=== PATIENT | male | born 1945 | race Asian ===

== ENCOUNTER 2024-01-28 21:19 | Emergency (ER) | payer MEDICARE, OTHER ==
[~2024-01-28] VITALS: Ht 170.2 cm; Wt 73.5 kg
[2024-01-28 21:30] VITALS: BP_SYST 115; PULSE 97; RESP 21; TEMP 98; O2SAT 96
[2024-01-28 22:43] LABS: HEMATOCRIT 32.1 % (36-54); HEMOGLOBIN 11.2 g/dL (14.0-18.0); LYMPHOCYTES # (AUTO) 0.4 K/uL (1.0-5.5); MEAN CORPUSCULAR HEMOGLOBIN 32 pg (27-31); MEAN CORPUSCULAR HGB CONC 35 % (32-36); MEAN CORPUSCULAR VOLUME 90 fL (79.0-98.0); PLATELET COUNT (AUTO) 130 K/uL (130-430); RED BLOOD CELL COUNT(AUTO) 3.57 MIL/uL (4.2-6.2); RED CELL DISTRIBUTION WIDTH 14.3 % (9.0-15.0); WHITE BLOOD COUNT (AUTO) 5.9 K/uL (4.8-10.8)
[2024-01-28 22:50] LABS: BASOPHILS % (AUTO) 0.5 % (0.0-2.0); EOSINOPHILS % (AUTO) 1.3 % (0.0-4.0); LYMPHOCYTES % (AUTO) 9.6 % (20.5-51.5); MONOCYTES # (AUTO) 0.6 K/uL (0.0-1.0); NEUTROPHILS # (AUTO) 4.5 K/uL (1.8-7.7)
[2024-01-28 22:51] LABS: EOSINOPHILS # (AUTO) 0.1 K/uL (0.0-0.4); MONOCYTES % (AUTO) 10.9 % (1.7-9.3)
[2024-01-28 22:52] LABS: ANION GAP 6 (5-15); CALCIUM 7.8 mg/dL (8.4-11.0); CARBON DIOXIDE 28 mmol/L (23-29); CHLORIDE 99 mmol/L (98-107); CREATININE 1.18 mg/dL (0.55-1.30); GLUCOSE 122 mg/dL (74-106); NEUTROPHILS % (AUTO) 77.7 % (40.0-70.0); POTASSIUM 3.6 mmol/L (3.5-5.1); SODIUM SERUM 133 mmol/L (136-145); UREA NITROGEN, BLOOD 31 mg/dL (8-21)
[2024-01-28] MEDS ORDERED: ROPI2TAB29 PO (23:55)
[2024-01-29] MEDS: ACETAMINOPHEN 500 MG TABLET PO ONE (00:07)
[2024-01-29 00:15] VITALS: BP_SYST 115; PULSE 97; RESP 21; TEMP 98; O2SAT 96
== END 2024-01-29 00:15 | disposition home or self-care (01) ==
LOC: SED 21:19
DX: G25.81 Restless legs syndrome (principal); E78.5 Hyperlipidemia, unspecified; Z98.890 Other specified postprocedural states; Z85.46 Personal history of malignant neoplasm of prostate; Z79.899 Other long term (current) drug therapy
CPT/HCPCS: 36415; 80048; 85025; 93971; 99284

== ENCOUNTER 2024-02-02 04:53 | Emergency (ER) | payer MEDICARE, OTHER ==
[~2024-02-02] VITALS: Ht 170.2 cm; Wt 70.3 kg
[~2024-02-02 04:53] MED LIST: ROPI2TAB29 PO
[2024-02-02 05:05] VITALS: BP_SYST 154; PULSE 97; RESP 16; TEMP 99.5; O2SAT 96
[2024-02-02] MEDS: NACL 0.9% 1,000 ML IV ONE (05:27)
[2024-02-02 07:21] LABS: BASOPHILS % (AUTO) 0.5 % (0.0-2.0); HEMATOCRIT 37.2 % (36-54); HEMOGLOBIN 12.4 g/dL (14.0-18.0); LYMPHOCYTES # (AUTO) 0.7 K/uL (1.0-5.5); LYMPHOCYTES % (AUTO) 11.7 % (20.5-51.5); MEAN CORPUSCULAR HEMOGLOBIN 30 pg (27-31); MEAN CORPUSCULAR HGB CONC 33 % (32-36); MEAN CORPUSCULAR VOLUME 90 fL (79.0-98.0); MONOCYTES # (AUTO) 0.5 K/uL (0.0-1.0); MONOCYTES % (AUTO) 9.7 % (1.7-9.3); NEUTROPHILS # (AUTO) 4.3 K/uL (1.8-7.7); NEUTROPHILS % (AUTO) 78.1 % (40.0-70.0); PLATELET COUNT (AUTO) 137 K/uL (130-430); RED BLOOD CELL COUNT(AUTO) 4.12 MIL/uL (4.2-6.2); RED CELL DISTRIBUTION WIDTH 14.3 % (9.0-15.0); WHITE BLOOD COUNT (AUTO) 5.6 K/uL (4.8-10.8)
[2024-02-02 07:32] LABS: PROTHROMBIN TIME 10.3 SECS (9.5-12.5)
[2024-02-02 07:34] LABS: ALANINE AMINOTRANSFERASE 26 U/L (12-78); ALBUMIN 2.7 g/dL (3.4-4.8); ANION GAP 7 (5-15); ASPARTATE AMINOTRANSFERASE 24 U/L (10-37); CALCIUM 7.8 mg/dL (8.4-11.0); CARBON DIOXIDE 25 mmol/L (23-29); CHLORIDE 101 mmol/L (98-107); CREATININE 0.96 mg/dL (0.55-1.30); GLUCOSE 116 mg/dL (74-106); POTASSIUM 3.8 mmol/L (3.5-5.1); SODIUM SERUM 133 mmol/L (136-145); TOTAL BILIRUBIN 1.2 mg/dL (0.0-1.0); TOTAL PROTEIN, SERUM 6.3 g/dL (6.4-8.3); UREA NITROGEN, BLOOD 18 mg/dL (8-21)
[2024-02-02 07:36] LABS: BILIRUBIN,DIRECT 0.3 mg/dL (0.0-0.3)
[2024-02-02 09:14] LABS: BILIRUBIN,URINE NEGATIVE (NEGATIVE); CLARITY/URINE CLEAR (CLEAR); COLOR,URINE YELLOW (YELLOW); GLUCOSE,URINE NEGATIVE (NEGATIVE); KETONES,URINE NEGATIVE (NEGATIVE); LEUKOCYTE ESTERASE ,URINE NEGATIVE (NEGATIVE); NITRITE, URINE NEGATIVE (NEGATIVE); PH,URINE 7.5 (5.0-8.0); PROTEIN URINE NEGATIVE (NEGATIVE); UROBILINOGEN,URINE 0.2 (0.2-1.0)
[2024-02-02 09:19] LABS: BLOOD, URINE TRACE (NEGATIVE)
[2024-02-02 09:42] LABS: COVID19 ANTIGEN SOFIA FIA NEGATIVE (NEGATIVE)
[2024-02-02] MEDS ORDERED: HYDR-3917 PO ×2 (09:42→09:46)
[2024-02-02] MEDS ORDERED: IBUP-1969 PO (09:42)
[2024-02-02] MEDS ORDERED: LEVO-62 PO (09:42)
[2024-02-02 09:48] LABS: INFLUENZA TYPE B NEGATIVE (NEGATIVE)
[2024-02-02 09:53] LABS: INFLUENZA TYPE A Positive (NEGATIVE)
[2024-02-02] MEDS ORDERED: OSEL75CA PO (09:54)
[2024-02-02 10:02] LABS: BACTERIA,URINE None Seen /HPF (None Seen); WBC,URINE NONE SEEN /HPF (0-3)
[2024-02-02] MEDS ORDERED: ONDANSETRON HCL 4 MG/2 ML VIAL ONE (12:12)
[2024-02-02] MEDS: ONDANSETRON HCL 4 MG/2 ML VIAL IVP ONE (12:19)
[2024-02-02] MEDS: MORPHINE 2 MG/ML INJ. SYRINGE IVP ONE (13:58)
[2024-02-02 14:26] VITALS: BP_SYST 122; PULSE 82; RESP 16; TEMP 98.1; O2SAT 93
== END 2024-02-02 14:24 | disposition short-term general hospital (02) ==
LOC: SED 04:53
DX: J18.9 Pneumonia, unspecified organism (principal); K80.20 Calculus of gallbladder without cholecystitis without obstruction; Z20.822 Contact with and (suspected) exposure to COVID-19; R10.11 Right upper quadrant pain; R51.9 Headache, unspecified; R53.1 Weakness; R11.10 Vomiting, unspecified; E78.5 Hyperlipidemia, unspecified; Z85.46 Personal history of malignant neoplasm of prostate; Z79.899 Other long term (current) drug therapy
CPT/HCPCS: 99285; 70450; 96365; 96375; 71045; 96361; 87426; 80076; 80048; 81001; 83880; 83690; 85025; 85379; 85610; 85730; 84484; 36415; 93005; 74176; 87804 ×2; J1956; J2405; J2270; J7030; 81000; 81015